=== PATIENT | male | born 1990 | race Caucasian/White ===

== ENCOUNTER 2023-09-21 18:15 | Inpatient (IN) | payer OTHER ==
[2023-09-21 19:10] VITALS: BMI 21.6
[2023-09-21] MEDS ORDERED: NALOXONE (NARCAN) HCL 4 MG/0.1 ML SPRAY NS PRN (20:02)
[2023-09-21] MEDS ORDERED: MAG HYDROX/AL HYDROX/SIMETH 30 ML UNIT-DOSE CUP PO PRN (20:02)
[2023-09-21] MEDS ORDERED: LOPERAMIDE HCL 2 MG CAPSULE PO PRN (20:02)
[2023-09-21] MEDS ORDERED: NICOTINE POLACRILEX 2 MG LOZENGE BC PRN (20:02)
[2023-09-21] MEDS ORDERED: IBUPROFEN 600 MG TABLET (FP) PO PRN (20:02)
[2023-09-21] MEDS ORDERED: BENZONATATE 200 MG CAPSULE PO PRN (20:02)
[2023-09-21] MEDS ORDERED: P-EPHED 60MG/TRIPROLIDI 2.5MG TABLET PO PRN (20:02)
[2023-09-21] MEDS ORDERED: ACETAMINOPHEN 325 MG TABLET (FP) PO PRN (20:02)
[2023-09-21] MEDS ORDERED: POLYETHYLENE GLYCOL (HEALTHYLAX) 3350 17 GM PACKET PO PRN (20:02)
[2023-09-21] MEDS ORDERED: NALOXONE HCL 0.4 MG/ML VIAL IM PRN (20:02)
[2023-09-21] MEDS ORDERED: DOCUSATE SODIUM 100 MG CAPSULE (FP) PO PRN (20:02)
[2023-09-21] MEDS ORDERED: IBUPROFEN 400 MG TABLET (FP) PO PRN (20:02)
[2023-09-21] MEDS ORDERED: guaiFENesin 600 MG TABLET.ER (FP) PO PRN (20:02)
[2023-09-21] MEDS ORDERED: BENZOCAINE/MENTHOL (CHLORASEPTIC ) LOZENGE MM PRN (20:02)
[2023-09-21] MEDS: THIAMINE 100 MG TABLET PO SCH (22:38)
[2023-09-21] MEDS: MELATONIN 5 MG TABLETS PO SCH (22:38)
[2023-09-22] MEDS ORDERED: TUBERCULIN PPD 5 TU/0.1ML SYRINGE (IN PATIENT USE ONLY) ID ONE (00:03)
[2023-09-22] MEDS ORDERED: TUBERCULIN PPD 5 TU/0.1ML VIAL ID ONE (09:44)
[2023-09-22] MEDS: PRENATAL VITAMINS W/ FOLIC ACID TABLET (FP) PO SCH (09:45)
[2023-09-22] MEDS: TUBERCULIN PPD 5 TU/0.1ML SYRINGE (IN PATIENT USE ONLY) ID ONE (09:45)
[2023-09-22] MEDS: methaDONE HCL 40 MG DISPERSABLE TABLET PO SCH (09:45)
[2023-09-22] MEDS: MAGNESIUM HYDROX 2400MG/30ML ORAL SUSPENSION 30 ML CUP PO PRN (11:07)
[2023-09-22 12:04] LABS: HEMATOCRIT 38.2 % (35.4-49); HEMOGLOBIN 12.8 GM/dL (11.7-16.9); MCH 30.5 pg (25.7-33.7); MCHC 33.5 g/dl (32.0-35.9); MEAN CELL VOLUME 91.1 fl (80-96); MEAN PLT VOLUME 6.7 fl (7.5-11.1); PLATELET COUNT 367 10^3/uL (134-434); RDW 14.9 % (11.9-15.9); WHITE BLOOD COUNT 4.9 K/mm3 (4.0-10.0)
[2023-09-22 12:05] LABS: POTASSIUM 4.7 mmol/L (3.5-5.1)
[2023-09-22 12:11] LABS: CALCIUM 9.4 mg/dL (8.5-10.1)
[2023-09-22 12:12] LABS: ALBUMIN 3.7 g/dl (3.4-5.0); BLOOD UREA NITROGEN 8.2 mg/dL (7-18)
[2023-09-22 12:16] LABS: CREATININE 0.7 mg/dL (0.55-1.3)
[2023-09-22 12:17] LABS: BILIRUBIN,TOTAL 1.4 mg/dL (0.2-1)
[2023-09-22 12:18] LABS: TOT PROT 6.7 g/dl (6.4-8.2)
[2023-09-22] MEDS: hydrOXYzine PAMOATE 25 MG CAPSULE (FP) PO PRN (12:38)
[2023-09-22] MEDS: NICOTINE POLACRILEX 2 MG GUM BUC PRN (12:38)
[2023-09-22 12:58] LABS: SYPHILIS W/ RPR CONF NON-REACTIVE (NONREACTIVE)
[2023-09-22] MEDS: SELENIUM SULFIDE 2.25% 180 ML SHAMPOO TP SCH (13:42)
[2023-09-22 16:53] LABS: URINE APPEARANCE CLEAR; URINE BILIRUBIN NEGATIVE (NEGATIVE); URINE COLOR YELLOW; URINE GLUCOSE (UA) NEGATIVE (NEGATIVE); URINE KETONE NEGATIVE (NEGATIVE); URINE LEUK ESTERASE NEGATIVE (NEGATIVE); URINE NITRITE NEGATIVE (NEGATIVE); URINE PROTEIN NEGATIVE (NEGATIVE); URINE UROBILINOGEN 0.2 mg/dL (0.2-1.0)
[2023-09-29] MEDS: MELATONIN 5 MG TABLETS PO SCH (21:32)
[2023-10-01] MEDS: SUVOREXANT 10 MG TABLET PO PRN (21:17)
[2023-10-03] MEDS: SUVOREXANT 10 MG TABLET PO PRN (22:03)
[2023-10-06] MEDS: TOLNAFTATE 1% CREAM 15 GM TUBE TP SCH (21:13)
[2023-10-10] MEDS: SUVOREXANT 10 MG TABLET PO PRN (21:09)
[2023-10-12 07:08] VITALS: TEMP 97.3
[2023-10-12] MEDS ORDERED: SUVOREXANT 10 MG TABLET PO PRN (22:00)
[2023-10-13 06:25] VITALS: BP 104/71; PULSE 80; RESP 16
== END 2023-10-13 11:46 | disposition home or self-care (01) | DRG 772 ==
LOC: YASAS 18:15 → Y3E 20:14
PROVIDERS: ADMIT Allergy & Immunology; ATTEND Psychiatry & Neurology Pain Medicine
PROC: HZ42ZZZ Group Counseling for Substance Abuse Treatment, Cognitive-Behavioral (ICD-10-PCS; principal; 2023-09-21)
DX: F14.20 Cocaine dependence, uncomplicated (principal); F11.20 Opioid dependence, uncomplicated; F10.20 Alcohol dependence, uncomplicated; F17.210 Nicotine dependence, cigarettes, uncomplicated; F19.24 Other psychoactive substance dependence with psychoactive substance-induced mood disorder; F90.9 Attention-deficit hyperactivity disorder, unspecified type; G47.00 Insomnia, unspecified; B35.3 Tinea pedis; Z56.0 Unemployment, unspecified; Z59.00 Homelessness unspecified
CPT/HCPCS: 36415; 80053; 80305; 81003; 85027; 86780; 86803; 87811; 93005; 93010